=== PATIENT | female | born 1950 | race Caucasian/White ===

== ENCOUNTER 2017-11-10 05:28 | Day surgery (SDC) | payer MEDICARE, OTHER ==
[2017-11-07 16:57] LABS: BASOPHILS # (AUTO) 0.1 X10'3 (0-0.2); EOSINOPHILS # (AUTO) 0.2 X10'3 (0-0.9); EOSINOPHILS % (AUTO) 3.6 % (0-6); LYMPHOCYTES # (AUTO) 1.8 X10'3 (1.1-4.8); LYMPHOCYTES % (AUTO) 30.6 % (21-51); MEAN CORPUSCULAR HEMOGLOBIN 31.8 PG (27.0-31.0); MEAN CORPUSCULAR HGB CONC 34.9 % (33.0-36.5); MEAN CORPUSCULAR VOLUME 91.2 FL (78-98); MEAN PLATELET VOLUME 8.1 FL (7.4-10.4); MONOCYTES # (AUTO) 0.3 X10'3 (0-0.9); MONOCYTES % (AUTO) 5.4 % (2-12); NEUTROPHILS # (AUTO) 3.4 X10'3 (1.8-7.7); NEUTROPHILS % (AUTO) 59.4 % (42-75); PRE OP HEMATOCRIT 38.9 % (35.0-45.0); PRE OP HEMOGLOBIN 13.6 g/dL (12.0-16.0); PRE OP PLATELET COUNT 235 X10'3 (140-440); RED BLOOD COUNT 4.26 X10'6 (4.20-5.60); RED CELL DISTRIBUTION WIDTH 13.4 % (11.5-14.5)
[2017-11-07 17:03] LABS: ALBUMIN 3.9 G/DL (3.4-5.0); ALBUMIN/GLOBULIN RATIO 1.2 (1.1-1.5); ALKALINE PHOSPHATASE 107 IU/L (46-116); BLOOD UREA NITROGEN 24 MG/DL (7-18); BUN/CREATININE RATIO 24.7 (6.6-38.0); CALCIUM 9.2 MG/DL (8.5-10.1); CHLORIDE 103 MMOL/L (99-107); CREATININE 0.97 MG/DL (0.40-0.90); PRE OP ALT 25 U/L (30-65); PRE OP ANION GAP 8 (8-16); PRE OP AST 17 U/L (10-37); PRE OP BILIRUB, TOTAL 0.5 MG/DL (0.0-1.0); PRE OP GLUCOSE 100 MG/DL (70-104); PRE OP POTASSIUM 3.9 MMOL/L (3.4-5.1); PRE OP SODIUM 141 MMOL/L (135-145); TOTAL CARBON DIOXIDE 29.9 MMOL/L (24-32); TOTAL PROTEIN 7.2 G/DL (6.4-8.2); eGFR 58 ML/MIN
[~2017-11-10] VITALS: Ht 162.6 cm; Wt 81.0 kg
[2017-11-10] VITALS (21 sets, daily range): BP systolic 97–146; BP diastolic 35–74
[~2017-11-10 05:28] MED LIST: AMIT-189 PO; GABA600T2 PO; LACT1CAP65 PO; MULT-269 PO; VIT1TABL83 PO
[2017-11-10] MEDS ORDERED: GENTAMICIN IV ONE (05:30)
[2017-11-10] MEDS ORDERED: clindamycin-Cleocin 900mg/D5W 50 ML IV ONE (05:30)
[2017-11-10] MEDS ORDERED: famotidine 20mg tablet PO ONE (05:30)
[2017-11-10] MEDS ORDERED: DEXTROSE 5% IV ONE (05:30)
[2017-11-10] MEDS ORDERED: WATER IV ONE (05:30)
[2017-11-10] MEDS ORDERED: LIDOcaine 1% (10mg/ml) 2ml vial ONE (05:50)
[2017-11-10] MEDS: ringers solution, lacted 1,000 ML IV SCH ×5 (06:08→22:37)
[2017-11-10] MEDS ORDERED: BUPIVAcaine 0.5% inj/PF 30 ml vial ONE (06:44)
[2017-11-10] MEDS ORDERED: epiNEPHrine 1 mg/ml inj ONE (06:44)
[2017-11-10] MEDS ORDERED: LIDOcaine 1% 30ml preserv. free vial ONE (06:45)
[2017-11-10] MEDS ORDERED: midazolam 2 mg/2 ml injection ONE (07:00)
[2017-11-10] MEDS ORDERED: fentaNYL /PF 50mcg/ml 5ml ampule ONE (07:00)
[2017-11-10] MEDS ORDERED: propofol inj 40 ML IV ONE (07:05)
[2017-11-10] MEDS ORDERED: LIDOcaine 1%/PF (10mg/ml) 5ml vial ONE ×2 (07:05→08:07)
[2017-11-10] MEDS ORDERED: rocuronium 10mg/ml inj IV ONE (07:06)
[2017-11-10] MEDS ORDERED: sevoflurane 250ml liquid IH ONE (07:47)
[2017-11-10] MEDS ORDERED: ondansetron/PF 4mg/2ml inj ONE (08:07)
[2017-11-10] MEDS ORDERED: ketorolac trometh. 30mg/ml inj. ONE (08:08)
[2017-11-10] MEDS ORDERED: dexamethasone sod phosphate 4mg/ml inj. ONE (08:08)
[2017-11-10] MEDS ORDERED: ePHEDrine 50MG/ML INJ. ONE (08:08)
[2017-11-10] MEDS ORDERED: neostigmine methylsulfate 1 MG/ML 10ml vial ONE (08:10)
[2017-11-10] MEDS ORDERED: glycopyrrolate 0.2mg/ml inj ONE (08:10)
[2017-11-10] MEDS ORDERED: ringers solution, lacted 1,000 ML IV SCH (08:32)
[2017-11-10] MEDS ORDERED: fentaNYL/PF 50MCG/1 ML 2ML syringe IV PRN ×2 (08:35)
[2017-11-10] MEDS ORDERED: meperidine/PF 50mg/ml syringe IV PRN (08:35)
[2017-11-10] MEDS ORDERED: proCHLORperazine 10 MG/2 ml inj IV PRN (08:35)
[2017-11-10] MEDS ORDERED: ondansetron/PF 4mg/2ml inj IV PRN ×2 (08:35→09:50)
[2017-11-10] MEDS ORDERED: HYDROmorphone inj. 0.5 MG/0.5 ML DISP.SYRIN IV PRN ×2 (08:35)
[2017-11-10] MEDS ORDERED: fluoroscein sod 10% (100mg/ml) 5ml vial ONE ×2 (08:56)
[2017-11-10] MEDS ORDERED: neomy sulf/bacitrac zn/polymixin b oint 14.2 gm tube TP ONE (09:18)
[2017-11-10] MEDS ORDERED: ketorolac tromethamine 15mg/ml inj. IV PRN (09:50)
[2017-11-10] MEDS ORDERED: diphenhydrAMINE 50 mg/ml inj IV PRN (09:50)
[2017-11-10] MEDS ORDERED: normal saline 500ml IV soln 500 ML IV PRN (09:50)
[2017-11-10] MEDS ORDERED: oxyCODONE/APAP 5-325mg tablet PO PRN (09:50)
[2017-11-10] MEDS ORDERED: LORazepam 2 mg/ml vial IV PRN (09:50)
[2017-11-10] MEDS ORDERED: mag hydrox/Alum hydrox/simeth 30ml oral suspension PO PRN (09:50)
[2017-11-10] MEDS ORDERED: morphine 4 MG/ML inj SYRINge IV PRN ×2 (09:50→10:30)
[2017-11-10] MEDS ORDERED: temazepam 15mg capsule PO PRN (09:50)
[2017-11-10] MEDS ORDERED: estradiol 0.1mg patch.TDWK TD SCH (09:50)
[2017-11-10] MEDS ORDERED: acetaminophen 1,000mg/100ml IV 100 ML IV PRN (10:30)
[2017-11-10] MEDS: oxyCODONE/APAP 5-325mg tablet PO PRN ×3 (12:40→21:16)
[2017-11-10] MEDS: simethicone 80mg chew tab PO SCH ×2 (12:44→19:11)
[2017-11-10] MEDS: docusate sod 100mg capsule PO SCH (19:11)
[2017-11-11] MEDS: oxyCODONE/APAP 5-325mg tablet PO PRN ×2 (03:16→10:29)
[2017-11-11 05:35] LABS: BASOPHILS % (AUTO) 0.1 % (0-1); EOSINOPHILS # (AUTO) 0.1 X10'3 (0-0.9); EOSINOPHILS % (AUTO) 0.7 % (0-6); LYMPHOCYTES # (AUTO) 1.2 X10'3 (1.1-4.8); LYMPHOCYTES % (AUTO) 15.4 % (21-51); MEAN CORPUSCULAR HEMOGLOBIN 31.5 PG (27.0-31.0); MEAN CORPUSCULAR HGB CONC 34.3 % (33.0-36.5); MEAN CORPUSCULAR VOLUME 91.8 FL (78-98); MEAN PLATELET VOLUME 7.7 FL (7.4-10.4); MONOCYTES # (AUTO) 0.4 X10'3 (0-0.9); MONOCYTES % (AUTO) 4.6 % (2-12); NEUTROPHILS # (AUTO) 6.1 X10'3 (1.8-7.7); NEUTROPHILS % (AUTO) 79.2 % (42-75); PLATELET COUNT 227 X10'3 (140-440); RED BLOOD COUNT 3.49 X10'6 (4.20-5.60); RED CELL DISTRIBUTION WIDTH 13.4 % (11.5-14.5); WHITE BLOOD COUNT 7.7 X10'3 (4.5-11.0)
[2017-11-11 05:41] LABS: ALBUMIN 3.1 G/DL (3.4-5.0); ANION GAP 7 (8-16); BLOOD UREA NITROGEN 20 MG/DL (7-18); BUN/CREATININE RATIO 17.5 (6.6-38.0); CALCIUM 8.4 MG/DL (8.5-10.1); CHLORIDE 103 MMOL/L (99-107); CREATININE 1.14 MG/DL (0.40-0.90); GLUCOSE 133 MG/DL (70-104); POTASSIUM 4.3 MMOL/L (3.5-5.1); SODIUM 140 MMOL/L (135-145); TOTAL CARBON DIOXIDE 30.1 MMOL/L (24-32); eGFR 48 ML/MIN
[2017-11-11] MEDS ORDERED: ESTR1PAT78 TD (06:54)
[2017-11-11 08:00] VITALS: BP 133/55
[2017-11-11] MEDS: simethicone 80mg chew tab PO SCH (09:04)
[2017-11-11] MEDS: docusate sod 100mg capsule PO SCH (09:04)
== END 2017-11-11 11:00 | disposition home or self-care (01) ==
LOC: PAS 05:28 → SUR 3N 11:35 → PAS 11-11 11:00
PROVIDERS: ATTEND Obstetrics & Gynecology
DX: D06.0 Carcinoma in situ of endocervix (principal); N84.0 Polyp of corpus uteri; D25.1 Intramural leiomyoma of uterus; I45.19 Other right bundle-branch block; E66.9 Obesity, unspecified; Z68.30 Body mass index [BMI] 30.0-30.9, adult; Z88.0 Allergy status to penicillin; Z79.891 Long term (current) use of opiate analgesic; Z90.89 Acquired absence of other organs; Z72.89 Other problems related to lifestyle; Z87.891 Personal history of nicotine dependence; Z91.013 Allergy to seafood; Z79.899 Other long term (current) drug therapy; Z98.890 Other specified postprocedural states
CPT/HCPCS: 36415; 57288; 58552; 80048; 80053; 85025; 86885; 86900; 86901; 87070; 93005; A4355; C1758; C1771; J0131; J0171; J1100; J1580; J1885; J2001; J2175; J2250; J2270; J2405; J2704; J2710; J3010; J3490; J7030; J7060; J7120; 88309; A6250; A7000